=== PATIENT | female | born 1990 | race African-American/Black ===

== ENCOUNTER 2022-02-27 21:36 | Emergency (ER) | payer BC ==
[2022-02-27 22:29] LABS: Absolute Lymphocytes (CBC) 2.7 K/uL (0.7-4.9); Hematocrit 35.1 % (36.0-45.0); Lymphocytes % 33.4 % (15.3-44.8); MCV 79.2 fL (80-100); MPV 8.2 fL (7.6-11.3); RBC Red Blood Cell Count 4.43 M/uL (3.86-4.86)
[2022-02-27 22:46] LABS: Potassium 3.4 mmol/L (3.5-5.1)
[2022-02-27 22:54] LABS: Urine Blood 3+ (Negative); Urine Glucose Negative (Negative); Urine Protein 1+ (Negative); Urine Specific Gravity >=1.030 (1.005-1.030); Urine pH 6.5 (5.0-7.0)
--- NOTE | 2022-02-27 23:13 | RAD REPORT ---
EXAM DESCRIPTION: US - TRANSVAG OB CERVIX ASSESSMENT - 02/27/2022 10:43 pm CLINICAL HISTORY: CXpregnancy, vaginal bleeding COMPARISON: No comparisons FINDINGS: Gravid uterus is detailed on separate limited OB ultrasound. A 6 centimeter long closed ce rvical canal is identified. No abnormal fluid collection or hematoma within the cervical canal. Patie nt gave a history of an abnormal uterus. This is not clearly identifiable on these images. There is a posterior uterine fibroid present. IMPRESSION: Cervical canal is long and closed. No blood or abnormal fluid collection in the cervical canal.
--- NOTE | 2022-02-27 23:18 | RAD REPORT ---
EXAM DESCRIPTION: US - OB Limited - 02/27/2022 10:40 pm CLINICAL HISTORY: vaginal bleeding, 14 weeks COMPARISON: TRANSVAG OB CERVIX ASSESSMENT dated 02/27/2022 FINDINGS: A single intrauterine gestation is identified. Heart rate is 141 BPM. Body and limb moveme nt was observed. [place]-rump length measurement corresponds to a 13 week 4 day age. Calculated DAVID is 08/31/2022. No gr oss anatomic abnormality seen. Dedicated anatomic survey was not performed. Amniotic fluid volume is normal. Placenta appears to be fundal with no gross abnormality seen. There is a 5.8 centimeter heterogeneous hypoechoic solid mass along the posterior margin of the lower uterine segment and cervix. This is believed be a uterine fibroid. This needs ongoing surveillance t o assure no growth over the course of the . This mass or any growth of this mass could have an effect on vaginal delivery given its proximity to the cervical canal. IMPRESSION: Single 13 week 4 day IUP with normal heart rate. No placenta or and may have fluid abnormality seen. A 5.8 centimeter mass posterior to the cervix and under uterine segment is believed to be a fibroid. This mass and any growth of the mass could affect vaginal delivery given the proximity to the cervica l canal. This needs ongoing surveillance.
--- NOTE | 2022-02-27 23:23 | EDPHYS ---
Physician Documentation [facility] Name: Ingrid Lee Age: 31 yrs Sex: Female : 1990 Arrival Date: 02/27/2022 Time: 21:40 Bed 19 Private MD: ED Physician Brandon Berkowitz HPI: 02/27 21:57 This 31 yrs old Black Female presents to ER via Ambulatory with complaints of Vaginal rn Bleeding. 21:57 The patient presents with vaginal bleeding that is light, with no clots. Onset: The rn symptoms/episode began/occurred today. Modifying factors: The symptoms are alleviated by nothing, the symptoms are aggravated by nothing. Associated signs and symptoms: Pertinent negatives: fever, urinary frequency, vaginal discharge. Severity of symptoms: At their worst the symptoms were mild, in the emergency department the symptoms are unchanged. The patient has not experienced similar symptoms in the past. The patient has been recently seen by a physician:. Pt reports 14 weeks , , has had normal ultrasound, no trauma. 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 No abd pain.. 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 - Social history:: Smoking status: Patient denies any tobacco usage or history of. - Family history:: not pertinent. - Hospitalizations: : No recent hospitalization is reported. ROS: 21:57 Constitutional: Negative for fever, chills, and weight loss, Eyes: Negative for injury, rn pain, redness, and discharge, Neck: Negative for injury, pain, and swelling, Cardiovascular: Negative for chest pain, palpitations, and edema, Respiratory: Negative for shortness of breath, cough, wheezing, and pleuritic chest pain, Abdomen/GI: Negative for abdominal pain, nausea, vomiting, diarrhea, and constipation, Back: Negative for injury and pain, : + vaginal bleeding MS/Extremity: Negative for injury and deformity, Skin: Negative for injury, rash, and discoloration, Neuro: Negative for headache, weakness, numbness, tingling, and seizure. Exam: 21:57 Constitutional: This is a well developed, well nourished patient who is awake, alert, rn and in no acute distress. Head/Face: Normocephalic, atraumatic. Eyes: Normal conjunctivae Cardiovascular: Tachycardic, regular. No pulse deficits. Respiratory: No increased work of breathing, no retractions or nasal flaring. Abdomen/GI: soft, non-tender Skin: Warm, dry Vital Signs: 21:47 BP 133 / 86; Pulse 110; Resp 18; Temp 98.4(O); Pulse Ox 98% on R/A; Weight 104.33 kg jh5 (R); Height 5 ft. 4 in. (162.56 cm); Pain 0/10; 23:01 BP 140 / 80; Pulse 108; Resp 16; Pulse Ox 100% on R/A; kd3 23:33 BP 128 / 84; Pulse 99; Resp 16; Pulse Ox 100% on R/A; kd3 21:47 Body Mass Index 39.48 (104.33 kg, 162.56 cm) [facility] MDM: 21:42 Patient medically screened. rn 23:21 Differential diagnosis: threatened Ab. Data reviewed: vital signs, nurses notes, construction or leak gang laborer test result(s), radiologic studies, ultrasound, and as a result, I will discharge patient. Counseling: I had a detailed discussion with the patient and/or guardian regarding: the historical points, exam findings, and any diagnostic results supporting the discharge/admit diagnosis, lab results, radiology results, the need for outpatient follow up, to return to the emergency department if symptoms worsen or persist or if there are any questions or concerns that arise at home. Response to treatment: the patient's symptoms have mildly improved after treatment, and as a result, I will discharge patient. Special discussion: I discussed with the patient/guardian in detail that at this point there is no indication for admission to the hospital. It is understood, however, that if the symptoms persist or worsen the patient needs to return immediately for re-evaluation. Based on the history and exam findings, there is no indication for further emergent testing or inpatient evaluation. I discussed with the patient/guardian the need to see the OB Gyne specialist for further evaluation of the symptoms. ED course: U/S shows IUP with heart beat, also shows possible uterine fibroid, notified patient, will f/u with OB. Return precautions given and understood. Rh+.. 02/27 21:49 Order name: Abo/rh Typing; Complete Time: 23:14 rn 02/27 21:49 Order name: Basic Metabolic Panel; Complete Time: 23:14 rn 02/27 21:49 Order name: CBC with Diff; Complete Time: 22:37 rn 02/27 21:49 Order name: Quantitative Hcg; Complete Time: 23:14 rn 02/27 22:54 Order name: Urine Dipstick-Ancillary; Complete Time: 23:14 EDMS 02/27 21:49 Order name: IV Saline Lock; Complete Time: 22:25 rn 02/27 21:49 Order name: Labs collected and sent; Complete Time: 22:25 rn 02/27 21:49 Order name: NPO; Complete Time: 22:25 rn 02/27 21:49 Order name: Urine Dipstick-Ancillary (obtain specimen); Complete Time: 22:59 rn 02/27 21:49 Order name: Urine Test (obtain specimen); Complete Time: 22:59 rn 02/27 21:49 Order name: US OB Limited; Complete Time: 23:20 rn 02/27 22:26 Order name: TRANSVAG OB CERVIX ASSESSMENT; Complete Time: 23:20 EDMS Administered Medications: No medications were administered Disposition Summary: 02/27/22 23:23 Discharge Ordered Location: Home rn Problem: new rn Symptoms: have improved rn Condition: Stable rn Diagnosis - Threatened rn Followup: rn - With: Private Physician - When: 48 Hours - Reason: Recheck today's complaints, Re-evaluation by your physician Discharge Instructions: - Discharge Summary Sheet rn - Threatened Miscarriage rn Forms: - Medication Reconciliation Form rn - Thank You Letter rn - Antibiotic international manager - Prescription Opioid Use rn Signatures: Dispatcher [employer] EDBrandon Matias MD MD rn Rees, Jessica RN RN jh5 Jaleesa Stanton, RN RN kd3
--- NOTE | 2022-02-27 23:23 | ER ---
Nurse's Notes [facility] Name: Ingrid Lee Age: 31 yrs Sex: Female : 1990 Arrival Date: 02/27/2022 Time: 21:40 Bed 19 Private MD: Diagnosis: Threatened Presentation: 02/27 21:47 Chief complaint: Patient states: "I got out of the shower and noticed a little bit of [facility] bleeding. I am about 14 weeks .". Coronavirus screen: Vaccine status: Patient reports receiving the 2nd dose of the covid vaccine. [place]. Ebola Screen: Patient negative for fever greater than or equal to 101.5 degrees Fahrenheit, and additional compatible Ebola Virus Disease symptoms Patient denies exposure to infectious person. Patient denies travel to an Ebola-affected area in the 21 days before illness onset. Initial Sepsis Screen: Does the patient meet any 2 criteria? HR > 90 bpm. Does the patient have a suspected source of infection? No. Patient's initial sepsis screen is negative. Risk Assessment: Do you want to hurt yourself or someone else? Patient reports no desire to harm self or others. Onset of symptoms was February 27, 2022 at 21:00. 21:47 Method Of Arrival: Ambulatory [facility] 21:47 Acuity: THAIS 3 [facility] Triage Assessment: 21:49 General: Appears in no apparent distress. Behavior is calm, cooperative, appropriate [facility] for age. Pain: Denies pain. : Reports vaginal bleeding that is bright red, light flow. 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 - Social history:: Smoking status: Patient denies any tobacco usage or history of. - Family history:: not pertinent. - Hospitalizations: : No recent hospitalization is reported. Screenin:30 Abuse screen: Denies threats or abuse. Denies injuries from another. Nutritional kd3 screening: No deficits noted. Tuberculosis screening: No symptoms or risk factors identified. Fall Risk None identified. Assessment: 22:29 General: Appears in no apparent distress. Behavior is calm, cooperative. Neuro: Level kd3 of Consciousness is awake, alert, obeys commands, Oriented to person, place, time, situation. Respiratory: Airway is patent Trachea midline Respiratory effort is even, unlabored, Respiratory pattern is regular, symmetrical. : pt report vaginal bleeding. Vital Signs: 21:47 BP 133 / 86; Pulse 110; Resp 18; Temp 98.4(O); Pulse Ox 98% on R/A; Weight 104.33 kg 5 (R); Height 5 ft. 4 in. (162.56 cm); Pain 0/10; 23:01 BP 140 / 80; Pulse 108; Resp 16; Pulse Ox 100% on R/A; kd3 23:33 BP 128 / 84; Pulse 99; Resp 16; Pulse Ox 100% on R/A; kd3 21:47 Body Mass Index 39.48 (104.33 kg, 162.56 cm) 5 ED Course: 21:40 Patient arrived in ED. 2 21:42 Brandon Berkowitz MD is Attending Physician. rn 21:49 Triage completed. 5 21:49 Arm band placed on. 5 21:58 Jaleesa Stanton, [place] is Primary Nurse. kd3 22:25 Abo/rh Typing Sent. kd3 22:25 Basic Metabolic Panel Sent. kd3 22:25 CBC with Diff Sent. kd3 22:25 Quantitative Hcg Sent. kd3 22:30 Patient has correct armband on for positive identification. kd3 22:30 No provider procedures requiring assistance completed. Inserted saline lock: 20 gauge kd3 in right antecubital area, using aseptic technique. Blood collected. 22:42 US OB Limited In Process Unspecified. EDMS 22:45 TRANSVAG OB CERVIX ASSESSMENT In Process Unspecified. EDMS 23:34 IV discontinued, intact, bleeding controlled, No redness/swelling at site. Pressure kd3 dressing applied. Administered Medications: No medications were administered Medication: 22:30 VIS not applicable for this client. kd3 Outcome: 23:23 Discharge ordered by . rn 23:34 Discharged to home ambulatory, with family. kd3 23:34 Condition: stable 23:34 Discharge instructions given to patient, family, Instructed on discharge instructions, follow up and referral plans. Demonstrated understanding of instructions, follow-up care. 23:34 Patient left the ED. kd3 Signatures: Dispatcher [employer] EDBrandon Matias MD MD rn Alexander, Jessica ja2 Rees, Jessica, RN RN jh5 Jaleesa Stanton RN RN kd3
[2022-02-28 22:51] VITALS: TEMP 98.4
[2022-02-28 22:52] VITALS: O2SAT 100
[2022-02-28 22:53] VITALS: BP 128/84
== END 2022-02-27 23:34 | disposition home or self-care (01) ==
LOC: ER 21:36
DX: O20.0 Threatened abortion (principal); Z3A.14 14 weeks gestation of pregnancy
CPT/HCPCS: 36415; 76815; 76817; 80048; 81003; 84702; 85025; 86900; 86901; 99283